=== PATIENT | female | born 1955 | race Caucasian/White ===

== ENCOUNTER 2019-02-17 21:56 | Inpatient (IN) | payer OTHER ==
[2019-02-17 22:00] VITALS: BMI 75.1
[2019-02-17] MEDS ORDERED: Nystatin Powder 15 GM BOT TOP PRN (23:35)
[2019-02-18 05:37] LABS: #Basophils 0.1 thou/uL (0.0-0.2); #Eosinphils 0.5 thou/uL (0.0-0.7); #Lymphocytes 1.7 thou/uL (1.20-3.40); #Monocytes 0.5 thou/uL (0.11-0.59); #Neutrophils 1.7 thou/uL (1.40-6.50); %Basophils 1.6 % (0.0-1.0); %Eosinophils 10.1 % (0.0-10.0); %Lymphocytes 38.3 % (21.0-51.0); %Monocytes 11.9 % (0.0-10.0); %Neutrophils 38.1 % (42.0-75.0); Anisocytosis SLIGHT = 6-15 cells (100X) (0-5/hpf); Hemoglobin 10.5 g/dL (12.0-16.0); Hypochromia SLIGHT = 6-15 cells (100X) (0-5/hpf); MDiff Complete? YES; Mean Corpuscular HGB CONC 29.2 g/dL (32.0-36.0); Mean Platelet Volume 9.8 fL (7.4-10.4); Platelet Count 145 thou/uL (130-400); Platelet Morphology Comment Appears Adequate; RBC Distribution Width 18.8 % (11.5-14.5); Red Blood Cell (RBC) Count 3.76 mill/uL (4.20-5.40); White Blood Cell (WBC) Count 4.5 thou/uL (4.8-10.8)
[2019-02-18 05:46] LABS: ALT (SGPT) 19 U/L (8-55); AST (SGOT) 30 U/L (5-34); Albumin 3.1 g/dL (3.4-4.8); Alkaline Phosphatase 53 U/L (40-150); Anion Gap 9 mmol/L (10-20); BUN (Urea Nitrogen) 12 mg/dL (9.8-20.1); Bilirubin, Total 0.7 mg/dL (0.2-1.2); Calc. Creatinine Clearance 290 mL/min (70-130); Calcium 9.7 mg/dL (7.8-10.44); Carbon Dioxide 35 mmol/L (23-31); Chloride 99 mmol/L (98-107); Estimated GFR-MDRD 89; Glucose 96 mg/dL (80-115); Potassium 4.2 mmol/L (3.5-5.1); Protein, Total 6.1 g/dL (6.0-8.3); Sodium 139 mmol/L (136-145)
[2019-02-18] MEDS: Apixaban 5 MG TAB PO SCH ×2 (08:45→20:39)
[2019-02-18] MEDS: Carvedilol 6.25 MG TAB PO SCH ×2 (08:45→20:38)
[2019-02-18] MEDS: Aspirin Chewable 81 MG TAB PO SCH (08:45)
[2019-02-18] MEDS: Bupropion 150 MG XL TAB PO SCH (08:45)
[2019-02-18] MEDS: Ergocalciferol 1.25 MG(50,000 UNITS) CAP PO SCH (08:46)
[2019-02-18] MEDS: Furosemide 40 MG TAB PO SCH ×2 (08:47→13:19)
[2019-02-18] MEDS: Famotidine 20 MG TAB PO SCH ×2 (08:47→20:39)
[2019-02-18] MEDS: Lisinopril 5 MG TAB PO SCH ×2 (08:48→20:37)
[2019-02-18] MEDS: Polyethylene Glycol 3350 17 GM Packet PO SCH (08:49)
[2019-02-18] MEDS: Mupirocin 2% Ointment 22 GM Tube TOP SCH ×2 (08:49→20:27)
[2019-02-18] MEDS: Saccharomyces boulardii 250 MG CAP PO SCH (08:50)
--- NOTE | 2019-02-18 20:55 | HP ---
CHIEF COMPLAINT: Morbidly obese female, admitted for significant deconditioning. BRIEF HISTORY: This is a pleasant 63-year-old, morbidly obese, female, who presented to [facility] on 01/24 with increasing shortness of breath, requiring BiPAP treatment. She was actually at [facility]. She was also felt to have left lower lobe pneumonia and was started on IV vancomycin, IV Zosyn, and Lasix 20 mg IV. She was admitted to the ICU and then transferred to the medical floor after improvement. She was felt to be a candidate for inpatient rehabilitation and transferred here. The patient has a wound VAC to her left leg where she had an abscess which was drained. Currently, she denies any fever, chills, chest pain, or shortness of breath. Wound VAC is going to be placed today by Therapy. PAST MEDICAL HISTORY: 1. Chronic atrial fibrillation. 2. Hypertension. 3. Obstructive sleep apnea. 4. Morbid obesity. 5. Significant deconditioning. 6. Resolving left thigh abscess. 7. Depression. PAST SURGICAL HISTORY: Nothing significant. FAMILY HISTORY: Positive for hypertension and diabetes. PSYCHOSOCIAL HISTORY: Denies any tobacco, alcohol, or recreational drug use. She is nonambulatory due to profound obesity. ALLERGIES: NO KNOWN DRUG ALLERGIES. MEDICATIONS: She has been transferred here on the following medications: 1. DuoNeb 3 mL q.i.d. schedule. 2. Eliquis 5 mg b.i.d. 3. Aspirin 81 mg daily. 4. Wellbutrin XL 300 mg daily. 5. Carvedilol 12.5 mg b.i.d. 6. Diltiazem CD 240 mg daily. 7. Drisdol 1.25 mg p.o. every Sunday. 8. Pepcid 20 mg b.i.d. 9. Lasix 40 mg b.i.d. 10. Lisinopril 5 mg b.i.d. 11. Bactroban ointment b.i.d. 12. MiraLAX 17 g in 8 ounces of water daily. 13. Florastor 250 mg daily. 14. Tylenol 650 p.o. q.4 p.r.n. REVIEW OF SYSTEMS: CARDIOVASCULAR SYSTEM: The patient denies any chest pain, shortness of breath, palpitations, PND, orthopnea, or pedal edema. RESPIRATORY SYSTEM: Denies any chronic cough, expectoration, or pleuritic type chest pain. GASTROINTESTINAL SYSTEM: Denies any nausea, vomiting, diarrhea, constipation, hematemesis, melena, or hematochezia. GENITOURINARY SYSTEM: Denies any frequency, urgency, dysuria, or hematuria. CENTRAL NERVOUS SYSTEM: Generalized weakness. She is awake and responsive. Cranial nerves 2 through 12 grossly intact. PHYSICAL EXAMINATION/OBJECTIVE: GENERAL: A very pleasant 63-year-old morbidly obese female, in no apparent distress. She responds appropriate to questions. She is alert, awake, and oriented x3. No family at bedside. VITAL SIGNS: She is afebrile, heart rate 84, respirations 20, oxygen saturation 97% on 2.5 L of nasal cannula, and blood pressure 100/63. HEENT: Normocephalic, atraumatic. Pupils equal and reactive to light and accommodation. Extraocular muscles intact. No JVD, thyromegaly, cervical lymphadenopathy, or throat exudates. No carotid bruits. CARDIOVASCULAR SYSTEM: S1, S2 plus. Irregularly irregular. RESPIRATORY SYSTEM: Normal vesicular breath sounds heard in all lung jimenez with decreased air entry in the bases. ABDOMEN: Soft, obese, and nontender. Bowel sounds heard in all quadrants. EXTREMITIES: Without cyanosis or clubbing. Chronic venous insufficiency and stasis dermatitis. Dressing over her left lateral lower thigh wound, wound with packing. Surrounding erythema, but no warmth or tenderness. CENTRAL NERVOUS SYSTEM: Alert, awake, and oriented x3. Cranial nerves 2 through 12 intact. Motor system examination shows generalized weakness. LABORATORY VALUES: Show white count of 4.5, H and H are 10.5 and 36.1, and platelet count is 145. Chemistry shows sodium 139, potassium 4.2, BUN and creatinine are 12 and 0.67. IMPRESSION: 1. Resolving left lateral thigh abscess, now requiring wound VAC. 2. Morbid obesity. 3. Hypertension. 4. Chronic atrial fibrillation. 5. Depression and anxiety. 6. Acute hypoxemic respiratory failure, requiring oxygen. 7. Acute on chronic diastolic heart failure. PLAN: 1. Continue discharge medications. 2. Heart healthy diet. 3. CPAP while sleeping. 4. Wound VAC. 5. Monitor heart rate and rhythm. 6. Monitor blood pressure and adjust medications as needed. 7. Titrate oxygen. 8. Breathing treatments as needed. 9. Routine laboratory values. 10. PT and OT eval and treat. 11. Stress ulcer prophylaxis. 12. Decubitus precautions. 13. DVT prophylaxis - she is on Eliquis. 14. Discussed with the patient and nursing in detail and all questions answered. No family at bedside. Job ID: [id number]
[2019-02-19] MEDS: Mupirocin 2% Ointment 22 GM Tube TOP SCH ×2 (09:19→20:28)
[2019-02-19] MEDS: Furosemide 40 MG TAB PO SCH ×2 (09:20→13:42)
[2019-02-19] MEDS: Bupropion 150 MG XL TAB PO SCH (09:20)
[2019-02-19] MEDS: Lisinopril 5 MG TAB PO SCH ×2 (09:20→20:28)
[2019-02-19] MEDS: Apixaban 5 MG TAB PO SCH ×2 (09:21→20:27)
[2019-02-19] MEDS: Famotidine 20 MG TAB PO SCH ×2 (09:21→20:28)
[2019-02-19] MEDS: Aspirin Chewable 81 MG TAB PO SCH (09:21)
[2019-02-19] MEDS: Carvedilol 6.25 MG TAB PO SCH ×2 (09:21→20:27)
[2019-02-19] MEDS: Saccharomyces boulardii 250 MG CAP PO SCH (09:22)
[2019-02-19] MEDS: Polyethylene Glycol 3350 17 GM Packet PO SCH (09:22)
[2019-02-20] MEDS: Carvedilol 6.25 MG TAB PO SCH ×2 (09:31→21:13)
[2019-02-20] MEDS: Bupropion 150 MG XL TAB PO SCH (09:31)
[2019-02-20] MEDS: Famotidine 20 MG TAB PO SCH ×2 (09:31→21:12)
[2019-02-20] MEDS: Furosemide 40 MG TAB PO SCH ×2 (09:31→13:16)
[2019-02-20] MEDS: Mupirocin 2% Ointment 22 GM Tube TOP SCH ×2 (09:32→21:12)
[2019-02-20] MEDS: Lisinopril 5 MG TAB PO SCH ×2 (09:32→21:13)
[2019-02-20] MEDS: Aspirin Chewable 81 MG TAB PO SCH (09:32)
[2019-02-20] MEDS: Polyethylene Glycol 3350 17 GM Packet PO SCH (09:32)
[2019-02-20] MEDS: Apixaban 5 MG TAB PO SCH ×2 (09:32→21:13)
[2019-02-20] MEDS: Saccharomyces boulardii 250 MG CAP PO SCH (09:33)
--- NOTE | 2019-02-20 13:50 | PRG ---
DATE OF SERVICE: 02/20/2019 SUBJECTIVE: Ms. Mckeon is doing well. Denies any complaints. Working with therapy. She would like some Tylenol p.r.n. She also wants to be a full code. OBJECTIVE: VITAL SIGNS: She is afebrile. Heart rate is 71, respirations 18, oxygen saturation 91% on room air, and blood pressure 101/59. CARDIOVASCULAR SYSTEM: S1, S2 plus. RESPIRATORY SYSTEM: Normal vesicular breath sounds. ABDOMEN: Soft, obese, nontender. Bowel sounds heard in all quadrants. EXTREMITIES: Without cyanosis or clubbing. Chronic venous insufficiency. She does have a wound VAC connected to her left thigh abscess drainage site. CENTRAL NERVOUS SYSTEM: AAO x3. Cranial nerves 2 through 12 intact. IMPRESSION: 1. Chronic atrial fibrillation. 2. Hypertension. 3. Obstructive sleep apnea. 4. Morbid obesity. 5. Significant deconditioning. 6. Depression. 7. Resolving left thigh abscess. PLAN: 1. Continue current medications. 2. Add Tylenol 500 mg q.6 p.r.n. 3. Full code. 4. DVT and stress ulcer prophylaxis. 5. Decubitus precautions. 6. Heart healthy diet. 7. Wound VAC care. 8. Physical Therapy. 9. Routine laboratory values. Job ID: [id number]
[2019-02-21] MEDS: Carvedilol 6.25 MG TAB PO SCH ×2 (09:26→21:09)
[2019-02-21] MEDS: Bupropion 150 MG XL TAB PO SCH (09:27)
[2019-02-21] MEDS: Furosemide 40 MG TAB PO SCH ×2 (09:28→13:50)
[2019-02-21] MEDS: Apixaban 5 MG TAB PO SCH ×2 (09:29→21:09)
[2019-02-21] MEDS: Famotidine 20 MG TAB PO SCH ×2 (09:29→21:09)
[2019-02-21] MEDS: Aspirin Chewable 81 MG TAB PO SCH (09:29)
[2019-02-21] MEDS: Lisinopril 5 MG TAB PO SCH ×2 (09:30→21:09)
[2019-02-21] MEDS: Saccharomyces boulardii 250 MG CAP PO SCH (09:31)
[2019-02-21] MEDS: Polyethylene Glycol 3350 17 GM Packet PO SCH (09:33)
[2019-02-21] MEDS: Mupirocin 2% Ointment 22 GM Tube TOP SCH ×2 (09:38→21:10)
[2019-02-22] MEDS: Apixaban 5 MG TAB PO SCH ×2 (08:53→21:18)
[2019-02-22] MEDS: Aspirin Chewable 81 MG TAB PO SCH (08:53)
[2019-02-22] MEDS: Bupropion 150 MG XL TAB PO SCH (08:53)
[2019-02-22] MEDS: Carvedilol 6.25 MG TAB PO SCH ×2 (08:54→21:17)
[2019-02-22] MEDS: Famotidine 20 MG TAB PO SCH ×2 (08:55→21:18)
[2019-02-22] MEDS: Lisinopril 5 MG TAB PO SCH ×2 (08:55→21:18)
[2019-02-22] MEDS: Furosemide 40 MG TAB PO SCH ×2 (08:55→13:52)
[2019-02-22] MEDS: Mupirocin 2% Ointment 22 GM Tube TOP SCH ×2 (08:56→21:19)
[2019-02-22] MEDS: Saccharomyces boulardii 250 MG CAP PO SCH (08:56)
[2019-02-22] MEDS: Polyethylene Glycol 3350 17 GM Packet PO SCH (08:56)
--- NOTE | 2019-02-22 09:12 | PRG ---
DATE OF SERVICE: 02/22/2019 SUBJECTIVE: Ms. Mckeon is a very pleasant 63-year-old morbidly obese white female, who presented to the emergency room at [facility] with shortness of breath, requiring BiPAP treatment. She was sent from [facility] and felt to have left lower lobe pneumonia. She was started on IV vancomycin, IV Zosyn, and Lasix 20 mg. She had to be admitted to the intensive care unit. Eventually, she was stabilized, transferred to the medical floor, and now was transferred to [facility] for increased physical therapy and occupational therapy through rehab. She did have an abscess on her left leg, which had to be drained. She now has a wound VAC, which is doing well. The patient states that she is doing well and has no problems. Her wound VAC does not hurt at all. She feels much better. She has already lost quite a bit of weight. Most likely that is from her diuresis. OBJECTIVE: GENERAL: This is a well-developed, well-nourished, obese white female, in no apparent distress at this time. VITAL SIGNS: Today reveal blood pressure 124/66; pulse 67 to 78; respirations 22 down to 20; O2 saturation 96% on 1 L yesterday on room air, this morning reveals O2 saturation 94%. T-max 96.5. HEENT: Normocephalic and nontraumatic cranium. Pupils are equal, round, and reactive. Extraocular movements are intact. Nose and throat are slightly dry. NECK: Supple without masses, nodes, or bruits. CHEST: Clear to auscultation. No rales, rhonchi, wheezes, or cough is heard. HEART: Irregularly irregular rate and rhythm. No murmurs, gallops, or rubs are noted. ABDOMEN: Soft and nontender without organomegaly. Normal bowel sounds are noted. She is morbidly obese. : Deferred. EXTREMITIES: No clubbing, cyanosis, or edema. The patient's left wound VAC is working well. It is not red, it is not leaking. No redness, warmth, or tenderness is noted. NEUROLOGIC: The patient is oriented x3. ASSESSMENT: 1. Left lateral thigh abscess with wound VAC. 2. Chronic atrial fibrillation. 3. Hypertension. 4. Acute hypoxic respiratory failure, requiring oxygen and CPAP every night. 5. [id number] diastolic heart failure. 6. Depression and anxiety. 7. Generalized weakness. PLAN: 1. Continue present medications. 2. Continue to encourage the patient to wear CPAP every night. 3. Continue wound VAC. 4. Monitor the patient's blood pressure and adjust medications as needed. 5. Titrate oxygen as needed. 6. P.r.n. DuoNeb. 7. Continue physical therapy and occupational therapy. 8. Decubitus precautions. 9. Stress ulcer prophylaxis. 10. Continue DVT prophylaxis with Eliquis. Job ID: [id number]
--- NOTE | 2019-02-23 07:50 | PRG ---
DATE OF SERVICE: 02/23/2019 SUBJECTIVE: Ms. Mckeon is a very pleasant 63-year-old morbidly obese white female. She presented to the emergency room at [place] with shortness of breath and required BiPAP. She eventually was stabilized and sent to [facility]. She was started on IV vancomycin, Zosyn, and Lasix. She had to be admitted to intensive care unit and where she was stabilized. She was eventually transferred to [facility] for PT and OT to increase her strength and stamina. The patient has also had a drained abscess on left leg, which now has a wound VAC on it. It was changed yesterday and has very little drainage today. The patient states she had a great day yesterday after they fixed her wound VAC. She has been doing well. She states she is hoping to go home this week or next week. OBJECTIVE: VITAL SIGNS: Reveal blood pressure 110/67, pulse 80, respirations 20, O2 saturation 95% on 1 L nasal cannula. T-max 97.9. GENERAL: This is a well-developed, well-nourished, very pleasant, morbidly obese white female, in no apparent distress at this time. HEENT: Normocephalic and nontraumatic cranium. Pupils are equal, round, and reactive. Extraocular movements are intact. Nose and throat are moist this morning. NECK: Supple without masses, nodes, or bruits. CHEST: Clear to auscultation. No rales, rhonchi, or wheezes are heard. No cough is noted. HEART: Reveals an irregularly irregular rate and rhythm. No murmurs, gallops, or rubs are noted. ABDOMEN: Soft, obese, nontender. Normal bowel sounds are noted. No rebound or guarding is noted. : Deferred. EXTREMITIES: Revealed no clubbing, cyanosis, or edema. The patient's wound VAC in the left lower thigh reveals no significant drainage at this time. It is not red, warm, or tender. It is not leaking. NEUROLOGIC: The patient is oriented x3. IMPRESSION: 1. Generalized weakness. 2. Chronic atrial fibrillation. 3. Hypertension. 4. Acute hypoxic respiratory failure, requiring oxygen, CPAP every night. 5. Left lateral thigh abscess with wound VAC. 6. Acute on chronic diastolic heart failure. 7. Depression and anxiety. 8. Generalized weakness. PLAN: 1. Continue present medications. 2. Encourage the patient to wear her CPAP every night. 3. Monitor the patient's blood pressure, adjust medications as needed. 4. Titrate oxygen as needed. 5. P.r.n. DuoNeb. 6. Continue wound VAC. 7. Decubitus precautions. 8. Stress ulcer precautions. 9. DVT prophylaxis with Eliquis. 10. Continue physical therapy and occupational therapy. Job ID: [id number]
[2019-02-23] MEDS: Carvedilol 6.25 MG TAB PO SCH ×2 (08:58→21:20)
[2019-02-23] MEDS: Furosemide 40 MG TAB PO SCH ×2 (08:59→13:28)
[2019-02-23] MEDS: Famotidine 20 MG TAB PO SCH ×2 (09:01→21:20)
[2019-02-23] MEDS: Bupropion 150 MG XL TAB PO SCH (09:01)
[2019-02-23] MEDS: Lisinopril 5 MG TAB PO SCH ×2 (09:02→21:20)
[2019-02-23] MEDS: Aspirin Chewable 81 MG TAB PO SCH (09:02)
[2019-02-23] MEDS: Apixaban 5 MG TAB PO SCH ×2 (09:02→21:20)
[2019-02-23] MEDS: Polyethylene Glycol 3350 17 GM Packet PO SCH (09:03)
[2019-02-23] MEDS: Saccharomyces boulardii 250 MG CAP PO SCH (09:04)
[2019-02-23] MEDS: Mupirocin 2% Ointment 22 GM Tube TOP SCH ×2 (09:12→21:21)
[2019-02-24] MEDS: Bupropion 150 MG XL TAB PO SCH (08:51)
[2019-02-24] MEDS: Aspirin Chewable 81 MG TAB PO SCH (08:52)
[2019-02-24] MEDS: Carvedilol 6.25 MG TAB PO SCH ×2 (08:52→20:51)
[2019-02-24] MEDS: Lisinopril 5 MG TAB PO SCH ×2 (08:53→20:51)
[2019-02-24] MEDS: Apixaban 5 MG TAB PO SCH ×2 (08:53→20:50)
[2019-02-24] MEDS: Furosemide 40 MG TAB PO SCH ×2 (08:54→13:28)
[2019-02-24] MEDS: Famotidine 20 MG TAB PO SCH ×2 (08:54→20:51)
[2019-02-24] MEDS: Polyethylene Glycol 3350 17 GM Packet PO SCH (09:00)
[2019-02-24] MEDS: Saccharomyces boulardii 250 MG CAP PO SCH (09:01)
[2019-02-24] MEDS: Mupirocin 2% Ointment 22 GM Tube TOP SCH ×2 (09:41→20:52)
--- NOTE | 2019-02-24 13:18 | PRG ---
DATE OF SERVICE: 02/24/2019 SUBJECTIVE: Ms. Mckeon is doing well. She has been working on for lunch. Denies any concerns or questions. Happy with her progress. Her wound VAC is apparently not draining anything, and physical therapy is doing the wound care. No fever, chills, chest pain, or shortness of breath. No family at bedside. OBJECTIVE: VITAL SIGNS: She is afebrile, heart rate 79, respirations 19, oxygen saturation 94% on 1 L, and blood pressure 118/87. CARDIOVASCULAR SYSTEM: S1 and S2 plus. RESPIRATORY SYSTEM: Normal vesicular breath sounds. ABDOMEN: Soft, obese, nontender. Bowel sounds heard in all quadrants. EXTREMITIES: Without cyanosis, clubbing. Wound VAC in place. CENTRAL NERVOUS SYSTEM: AAO x3. Improving weakness. IMPRESSION: 1. Left thigh abscess, status post I and D, now with wound VAC placement. 2. Morbid obesity. 3. Chronic atrial fibrillation. 4. Hypertension. 5. Obstructive sleep apnea. 6. Improving deconditioning. PLAN: 1. Continue current medications. 2. Nutritional support. 3. Wound VAC. 4. DVT and stress ulcer prophylaxis. 5. Decubitus precautions. 6. Monitor heart rate and rhythm. 7. Continue therapy. 8. Discussed with the patient in detail. All questions answered. Job ID: [id number]
[2019-02-25] MEDS: Lisinopril 5 MG TAB PO SCH ×2 (09:10→20:34)
[2019-02-25] MEDS: Furosemide 40 MG TAB PO SCH ×2 (09:10→13:49)
[2019-02-25] MEDS: Apixaban 5 MG TAB PO SCH ×2 (09:10→20:33)
[2019-02-25] MEDS: Famotidine 20 MG TAB PO SCH ×2 (09:10→20:34)
[2019-02-25] MEDS: Aspirin Chewable 81 MG TAB PO SCH (09:10)
[2019-02-25] MEDS: Bupropion 150 MG XL TAB PO SCH (09:10)
[2019-02-25] MEDS: Carvedilol 6.25 MG TAB PO SCH ×2 (09:10→20:34)
[2019-02-25] MEDS: Saccharomyces boulardii 250 MG CAP PO SCH (09:11)
[2019-02-25] MEDS: Mupirocin 2% Ointment 22 GM Tube TOP SCH ×2 (09:12→20:34)
[2019-02-25] MEDS: Polyethylene Glycol 3350 17 GM Packet PO SCH (09:12)
[2019-02-25] MEDS: Ergocalciferol 1.25 MG(50,000 UNITS) CAP PO SCH (09:19)
--- NOTE | 2019-02-25 14:10 | PRG ---
DATE OF SERVICE: SUBJECTIVE: Ms. Mckeon is doing well. She has been moved to a bigger room, so therapy can work with her more comfortably. The patient denies any concerns or questions. She is tolerating her VAC. No fever or chills. OBJECTIVE: VITAL SIGNS: She is afebrile. Heart rate 73, respirations 18, blood pressure 116/57. CARDIOVASCULAR SYSTEM: S1 and S2 plus. RESPIRATORY SYSTEM: Normal vesicular breath sounds. ABDOMEN: Soft, obese, nontender. Bowel sounds heard in all quadrants. EXTREMITIES: Without cyanosis, clubbing. Wound VAC in place to the left thigh abscess drainage site. CENTRAL NERVOUS SYSTEM: AAO x3. Cranial nerves 2 through 12 intact. Improving deconditioning. IMPRESSION: 1. Left thigh abscess status post I and D, now requiring wound VAC. 2. Chronic atrial fibrillation. 3. Hypertension. 4. Obstructive sleep apnea. 5. Morbid obesity. 6. Significant deconditioning. 7. Depression. PLAN: 1. Continue current medications. 2. Nutritional support. 3. DVT and stress ulcer prophylaxis. 4. Decubitus precautions. 5. Wound VAC care. 6. Routine laboratory values. 7. Physical therapy. 8. Discussed with the patient and therapy in detail. All questions answered. Job ID: [id number]
[2019-02-25] MEDS: Acetaminophen 325 MG TAB PO PRN (19:06)
[2019-02-26] MEDS: Apixaban 5 MG TAB PO SCH ×2 (08:27→20:14)
[2019-02-26] MEDS: Aspirin Chewable 81 MG TAB PO SCH (08:27)
[2019-02-26] MEDS: Bupropion 150 MG XL TAB PO SCH (08:28)
[2019-02-26] MEDS: Carvedilol 6.25 MG TAB PO SCH ×2 (08:28→20:14)
[2019-02-26] MEDS: Famotidine 20 MG TAB PO SCH ×2 (08:29→20:14)
[2019-02-26] MEDS: Lisinopril 5 MG TAB PO SCH ×2 (08:29→20:15)
[2019-02-26] MEDS: Furosemide 40 MG TAB PO SCH ×2 (08:29→13:17)
[2019-02-26] MEDS: Polyethylene Glycol 3350 17 GM Packet PO SCH (08:30)
[2019-02-26] MEDS: Saccharomyces boulardii 250 MG CAP PO SCH (08:30)
[2019-02-26] MEDS: Mupirocin 2% Ointment 22 GM Tube TOP SCH ×2 (08:30→20:18)
[2019-02-27] MEDS: Aspirin Chewable 81 MG TAB PO SCH (08:27)
[2019-02-27] MEDS: Apixaban 5 MG TAB PO SCH ×2 (08:27→21:26)
[2019-02-27] MEDS: Bupropion 150 MG XL TAB PO SCH (08:28)
[2019-02-27] MEDS: Carvedilol 6.25 MG TAB PO SCH ×2 (08:28→21:27)
[2019-02-27] MEDS: Famotidine 20 MG TAB PO SCH ×2 (08:29→21:25)
[2019-02-27] MEDS: Lisinopril 5 MG TAB PO SCH ×2 (08:29→21:26)
[2019-02-27] MEDS: Furosemide 40 MG TAB PO SCH ×2 (08:29→14:09)
[2019-02-27] MEDS: Polyethylene Glycol 3350 17 GM Packet PO SCH (08:30)
[2019-02-27] MEDS: Mupirocin 2% Ointment 22 GM Tube TOP SCH ×2 (08:30→21:28)
[2019-02-27] MEDS: Saccharomyces boulardii 250 MG CAP PO SCH (08:30)
[2019-02-27] MEDS: Acetaminophen 325 MG TAB PO PRN (11:28)
--- NOTE | 2019-02-27 13:52 | PRG ---
DATE OF SERVICE: 02/27/2019 SUBJECTIVE: Ms. Mckeon is doing well except for some sinus congestion. She denies any fever, chills, chest pain, or shortness of breath. She is tolerating therapy and her wound VAC. Discussed with nursing. OBJECTIVE: VITAL SIGNS: She is afebrile. Heart rate 73, respirations 18, blood pressure 138/76, and oxygen saturation 94% on 1 L nasal cannula. CARDIOVASCULAR SYSTEM: S1 and S2 plus. RESPIRATORY SYSTEM: Normal vesicular breath sounds. ABDOMEN: Soft, obese, and nontender. Bowel sounds heard in all quadrants. EXTREMITIES: Without cyanosis or clubbing. Wound VAC in place. CENTRAL NERVOUS SYSTEM: AAO x3. Cranial nerves 2 through 12 intact. Improving deconditioning. IMPRESSION: 1. Left thigh abscess, requiring I and D and wound VAC placement. 2. Chronic atrial fibrillation. 3. Hypertension. 4. Obstructive sleep apnea. 5. Morbid obesity. 6. Deconditioning. 7. Depression. 8. Possible allergic rhinitis. PLAN: 1. Trial of Claritin 10 mg daily at bedtime. 2. Continue other medications. 3. Nutritional support. 4. DVT and stress ulcer prophylaxis. 5. Decubitus precautions. 6. Wound VAC care. 7. Monitor heart rate and rhythm. 8. Continue therapy. 9. Routine laboratory values. 10. Discussed with the patient in detail. All questions answered. Job ID: [id number]
[2019-02-27] MEDS: Loratadine 10 MG TAB PO SCH (21:26)
[2019-02-28] MEDS: Bupropion 150 MG XL TAB PO SCH (08:39)
[2019-02-28] MEDS: Aspirin Chewable 81 MG TAB PO SCH (08:39)
[2019-02-28] MEDS: Apixaban 5 MG TAB PO SCH ×2 (08:39→21:21)
[2019-02-28] MEDS: Carvedilol 6.25 MG TAB PO SCH ×2 (08:40→21:22)
[2019-02-28] MEDS: Furosemide 40 MG TAB PO SCH ×2 (08:42→14:25)
[2019-02-28] MEDS: Famotidine 20 MG TAB PO SCH ×2 (08:42→21:20)
[2019-02-28] MEDS: Lisinopril 5 MG TAB PO SCH ×2 (08:42→21:22)
[2019-02-28] MEDS: Mupirocin 2% Ointment 22 GM Tube TOP SCH (08:52)
[2019-02-28] MEDS: Polyethylene Glycol 3350 17 GM Packet PO SCH (08:52)
[2019-02-28] MEDS: Saccharomyces boulardii 250 MG CAP PO SCH (08:53)
--- NOTE | 2019-02-28 12:16 | PRG ---
DATE OF SERVICE: SUBJECTIVE: The patient is sitting up in the bed, feels well. Feels that she is getting stronger, is tolerating wound VAC to her left leg with minimal pain, is having no palpitations or shortness of breath at rest. OBJECTIVE: VITAL SIGNS: Show blood pressure is 114/77, pulse 77, O2 sats 95% on 2L. LUNGS: Show decreased breath sounds at bases. CARDIAC: Shows irregularly irregular rhythm. ABDOMEN: Obese, nontender. ASSESSMENT: 1. Resolving left thigh abscess, on wound VAC and on PT and OT. 2. Chronic atrial fibrillation with adequate rate control, on anticoagulation. 3. Hypertension, controlled to goal. 4. Obstructive sleep apnea and morbid obesity, stable. 5. Allergic rhinitis, persistent, despite initiation of treatment with loratadine. PLAN: 1. Continue physical therapy. 2. Continue wound care. 3. Continue rate control and anticoagulation of atrial fibrillation. 4. Continue physical and occupational therapies. Job ID: [id number]
[2019-02-28] MEDS: Loratadine 10 MG TAB PO SCH (21:21)
--- NOTE | 2019-03-01 07:59 | PRG ---
DATE OF SERVICE: 03/01/2019 SUBJECTIVE: The patient feels well, lying in the bed, but is having some problems with increased chest congestion as well as nasal congestion with some dyspnea, she has not received breathing treatment this morning. She did wear her CPAP last night. OBJECTIVE: LUNGS: With few diffuse wheezes. CARDIAC: Regular rhythm. SKIN/EXTREMITIES: Shows morbid obesity with no edema. VITAL SIGNS: Shows O2 sats 96% on 2 L, blood pressure 120/70. EXTREMITIES: Left thigh shows wound VAC in place. CARDIAC: Shows irregularly irregular rhythm. ASSESSMENT: 1. Obstructive sleep apnea, compliant to CPAP, but with increased wheezing this morning. Awaiting nebulizer treatment. 2. Resolving left thigh abscess with wound VAC in place. 3. Chronic atrial fibrillation with rate controlled on anticoagulation. 4. Hypertension, controlled to goal. PLAN: 1. Obtain chest x-ray. 2. Continue handheld nebulizers, oxygen supplementation, and CPAP as needed. Continue physical and occupational therapy, and obtain chest x-ray. Job ID: [id number]
[2019-03-01] MEDS: Bupropion 150 MG XL TAB PO SCH (09:22)
[2019-03-01] MEDS: Famotidine 20 MG TAB PO SCH ×2 (09:22→20:00)
[2019-03-01] MEDS: Saccharomyces boulardii 250 MG CAP PO SCH (09:22)
[2019-03-01] MEDS: Lisinopril 5 MG TAB PO SCH ×2 (09:22→20:00)
[2019-03-01] MEDS: Furosemide 40 MG TAB PO SCH ×2 (09:22→14:37)
[2019-03-01] MEDS: Aspirin Chewable 81 MG TAB PO SCH (09:22)
[2019-03-01] MEDS: Polyethylene Glycol 3350 17 GM Packet PO SCH (09:23)
[2019-03-01] MEDS: Apixaban 5 MG TAB PO SCH ×2 (09:23→20:01)
[2019-03-01] MEDS: Carvedilol 6.25 MG TAB PO SCH ×2 (09:23→20:00)
[2019-03-01] MEDS: Acetaminophen 325 MG TAB PO PRN (17:04)
[2019-03-01] MEDS: Loratadine 10 MG TAB PO SCH (20:01)
[2019-03-02] MEDS: Bupropion 150 MG XL TAB PO SCH (08:35)
[2019-03-02] MEDS: Apixaban 5 MG TAB PO SCH ×2 (08:36→20:32)
[2019-03-02] MEDS: Carvedilol 6.25 MG TAB PO SCH ×2 (08:36→20:32)
[2019-03-02] MEDS: Saccharomyces boulardii 250 MG CAP PO SCH (08:36)
[2019-03-02] MEDS: Aspirin Chewable 81 MG TAB PO SCH (08:36)
[2019-03-02] MEDS: Lisinopril 5 MG TAB PO SCH ×2 (08:36→20:32)
[2019-03-02] MEDS: Famotidine 20 MG TAB PO SCH ×2 (08:36→20:32)
[2019-03-02] MEDS: Furosemide 40 MG TAB PO SCH ×2 (08:36→14:41)
[2019-03-02] MEDS: Polyethylene Glycol 3350 17 GM Packet PO SCH (08:37)
[2019-03-02] MEDS: Loratadine 10 MG TAB PO SCH (20:32)
--- NOTE | 2019-03-02 21:04 | PRG ---
DATE OF SERVICE: 03/02/2019 SUBJECTIVE: The patient feels well, sitting up in bed family somewhat. She is having no pain in her hip, is having decreasing dyspnea. OBJECTIVE: VITAL SIGNS: O2 sats 94% on 1 L, temperature is 96.5, pulse 65, respirations 20, and blood pressure 122/75. LUNGS: Clear. Cardiac: Showed regular rhythm. ABDOMEN: Soft and nontender. Morbid obesity. EXTREMITIES: Morbid obesity of the legs with left thigh wound VAC in place. ASSESSMENT: 1. Stable obstructive sleep apnea, on CPAP with no further wheezing after nebulizer treatment. 2. Resolving left thigh abscess, on wound VAC. 3. Chronic atrial fibrillation, rate controlled on anticoagulation. 4. Hypertension, controlled to goal. PLAN: 1. Continue wound VAC, wound care. 2. Continue CPAP at night. 3. Continue handheld nebulizers and supplemental oxygen as needed. Discussed x-ray with Department as may be unable to obtain x-ray on this lady. Job ID: [id number]
[2019-03-03] MEDS: Acetaminophen 325 MG TAB PO PRN (04:46)
[2019-03-03] MEDS: Carvedilol 6.25 MG TAB PO SCH ×2 (08:41→20:22)
[2019-03-03] MEDS: Apixaban 5 MG TAB PO SCH ×2 (08:41→20:22)
[2019-03-03] MEDS: Aspirin Chewable 81 MG TAB PO SCH (08:41)
[2019-03-03] MEDS: Saccharomyces boulardii 250 MG CAP PO SCH (08:41)
[2019-03-03] MEDS: Bupropion 150 MG XL TAB PO SCH (08:42)
[2019-03-03] MEDS: Lisinopril 5 MG TAB PO SCH ×2 (08:42→20:22)
[2019-03-03] MEDS: Furosemide 40 MG TAB PO SCH ×2 (08:43→13:48)
[2019-03-03] MEDS: Famotidine 20 MG TAB PO SCH ×2 (08:43→20:22)
[2019-03-03] MEDS: Polyethylene Glycol 3350 17 GM Packet PO SCH (08:45)
--- NOTE | 2019-03-03 13:36 | PRG ---
DATE OF SERVICE: 03/03/2019 SUBJECTIVE: Ms. Mckeon is doing well. She is happy with her progress. She states she is getting stronger. Denies any concerns or questions. OBJECTIVE: VITAL SIGNS: She is afebrile. Heart rate 75, respirations 18, oxygen saturation 97%. She currently has her oxygen off. CARDIOVASCULAR: S1 and S2 plus. RESPIRATORY: Normal vesicular breath sounds. ABDOMEN: Soft, obese, nontender. Bowel sounds heard in all quadrants. EXTREMITIES: Without cyanosis or clubbing. Wound VAC in place. CENTRAL NERVOUS SYSTEM: AAO x3. Cranial nerves 2 through 12 intact. Improving deconditioning. IMPRESSION: 1. Left thigh abscess status post incision and drainage now with wound VAC. Apparently, it is closing well. We will discuss with therapy as to see if and when it can be discontinued. 2. Morbid obesity. 3. Chronic atrial fibrillation. 4. Hypertension. 5. Obstructive sleep apnea. 6. Deconditioning. 7. Depression. 8. Allergic rhinitis. PLAN: 1. Continue Claritin. 2. Wound VAC. 3. Nutritional support. 4. DVT and stress ulcer prophylaxis. 5. Decubitus precaution. 6. Routine laboratory values. 7. Continue physical therapy. 8. Discussed with the patient in detail. All questions answered. Job ID: [id number]
[2019-03-03] MEDS: Loratadine 10 MG TAB PO SCH (20:22)
[2019-03-04] MEDS: Bupropion 150 MG XL TAB PO SCH (09:19)
[2019-03-04] MEDS: Lisinopril 5 MG TAB PO SCH ×2 (09:20→19:41)
[2019-03-04] MEDS: Carvedilol 6.25 MG TAB PO SCH ×2 (09:20→19:41)
[2019-03-04] MEDS: Ergocalciferol 1.25 MG(50,000 UNITS) CAP PO SCH (09:20)
[2019-03-04] MEDS: Furosemide 40 MG TAB PO SCH ×2 (09:20→13:01)
[2019-03-04] MEDS: Saccharomyces boulardii 250 MG CAP PO SCH (09:21)
[2019-03-04] MEDS: Polyethylene Glycol 3350 17 GM Packet PO SCH (09:21)
[2019-03-04] MEDS: Famotidine 20 MG TAB PO SCH ×2 (09:21→19:42)
[2019-03-04] MEDS: Aspirin Chewable 81 MG TAB PO SCH (09:21)
[2019-03-04] MEDS: Apixaban 5 MG TAB PO SCH ×2 (09:21→19:41)
--- NOTE | 2019-03-04 13:27 | PRG ---
DATE OF SERVICE: 03/04/2019 SUBJECTIVE: Ms. Mckeon is doing well. Denies any complaints. Resting comfortably up in her chair and just finished her lunch. She is working on fpc papers. Her insurance apparently has approved her to stay here until March 13. I reviewed her old records and Dr. Augustine does not mention anything about needing to see her as outpatient. Her wounds are healing nicely. I spoke with therapy and apparently it is about 15 mm x 15 mm. I advised him to continue wound VAC until he thinks she does not need it and after that they can just do regular dressings. I do not think suturing that is going to help, it really needs to heal completely by secondary intention. OBJECTIVE: VITAL SIGNS: She is afebrile, heart rate 77, respirations 20, oxygen saturation 95% on room air, blood pressure 124/83. CARDIOVASCULAR: S1, S2 plus. RESPIRATORY: Normal vesicular breath sounds. ABDOMEN: Soft, obese, nontender. Bowel sounds heard in all quadrants. EXTREMITIES: Without cyanosis or clubbing. Peripheral pulses are palpable. CENTRAL NERVOUS SYSTEM: AAO x3. Cranial nerves 2 through 12 intact. Grossly nonfocal. IMPRESSION: 1. Left thigh abscess status post incision and drainage and now with wound VAC. 2. Morbid obesity. 3. Obstructive sleep apnea. 4. Deconditioning, slow improvement. 5. Chronic atrial fibrillation. 6. Hypertension. 7. Depression. 8. Allergic rhinitis. PLAN: 1. Continue current medications. 2. Wound VAC. 3. Nutritional support. 4. DVT and stress ulcer prophylaxis. 5. Decubitus precaution. 6. Routine laboratory values. 7. Physical therapy. 8. Discussed with the patient in detail. All questions are answered. Job ID: [id number]
[2019-03-04] MEDS: Loratadine 10 MG TAB PO SCH (19:41)
[2019-03-05] MEDS: Saccharomyces boulardii 250 MG CAP PO SCH (08:23)
[2019-03-05] MEDS: Apixaban 5 MG TAB PO SCH ×2 (08:24→19:48)
[2019-03-05] MEDS: Famotidine 20 MG TAB PO SCH ×2 (08:24→19:48)
[2019-03-05] MEDS: Bupropion 150 MG XL TAB PO SCH (08:24)
[2019-03-05] MEDS: Furosemide 40 MG TAB PO SCH ×2 (08:24→14:31)
[2019-03-05] MEDS: Aspirin Chewable 81 MG TAB PO SCH (08:24)
[2019-03-05] MEDS: Carvedilol 6.25 MG TAB PO SCH ×2 (08:24→19:48)
[2019-03-05] MEDS: Lisinopril 5 MG TAB PO SCH ×2 (08:24→19:48)
[2019-03-05] MEDS: Polyethylene Glycol 3350 17 GM Packet PO SCH (08:25)
[2019-03-05] MEDS: Loratadine 10 MG TAB PO SCH (19:49)
[2019-03-06] MEDS: Carvedilol 6.25 MG TAB PO SCH ×2 (08:51→21:04)
[2019-03-06] MEDS: Furosemide 40 MG TAB PO SCH ×2 (08:52→14:16)
[2019-03-06] MEDS: Polyethylene Glycol 3350 17 GM Packet PO SCH (08:52)
[2019-03-06] MEDS: Famotidine 20 MG TAB PO SCH ×2 (08:52→21:03)
[2019-03-06] MEDS: Aspirin Chewable 81 MG TAB PO SCH (08:52)
[2019-03-06] MEDS: Bupropion 150 MG XL TAB PO SCH (08:52)
[2019-03-06] MEDS: Lisinopril 5 MG TAB PO SCH ×2 (08:52→21:03)
[2019-03-06] MEDS: Apixaban 5 MG TAB PO SCH ×2 (08:52→21:03)
[2019-03-06] MEDS: Saccharomyces boulardii 250 MG CAP PO SCH (08:52)
--- NOTE | 2019-03-06 10:13 | PRG ---
DATE OF SERVICE: 03/06/2019 SUBJECTIVE: Ms. Mckeon is doing well, denies any complaints, slowly improving with therapy. Apparently, her last date per insurance is 03/13. Discussed with nursing and I advised them to try to titrate her off the oxygen. She apparently does not use it at home. She is currently in a 1 L. OBJECTIVE: VITAL SIGNS: She is afebrile. Heart rate 81, respirations 20, oxygen saturation 94% on 1 L, blood pressure 128/70. CARDIOVASCULAR SYSTEM: S1, S2 plus. RESPIRATORY SYSTEM: Normal vesicular breath sounds, occasional rhonchi. ABDOMEN: Soft, obese, nontender. Bowel sounds heard in all quadrants. EXTREMITIES: Without cyanosis, clubbing. Thigh with wound VAC. CENTRAL NERVOUS SYSTEM: AAO x3. Cranial nerves 2 through 12 intact. Improving deconditioning. IMPRESSION: 1. Left thigh abscess, requiring I and D and wound VAC placement. 2. Obstructive sleep apnea, on nocturnal CPAP. 3. Morbid obesity. 4. Acute hypoxemic respiratory failure, slowly titrating her oxygen. 5. Chronic atrial fibrillation. 6. Hypertension. 7. Depression. 8. Allergic rhinitis. PLAN: 1. Continue current medications. 2. Continue wound VAC. 3. Nutritional support. 4. DVT and stress ulcer prophylaxis. 5. Decubitus precautions. Monitor heart rate and rhythm. 6. Titrate oxygen. 7. Continue therapy. 8. Discussed with the patient and nursing in detail. All questions answered. Job ID: [id number]
[2019-03-06] MEDS: Loratadine 10 MG TAB PO SCH (21:03)
[2019-03-07] MEDS: Bupropion 150 MG XL TAB PO SCH (08:46)
[2019-03-07] MEDS: Saccharomyces boulardii 250 MG CAP PO SCH (08:46)
[2019-03-07] MEDS: Famotidine 20 MG TAB PO SCH ×2 (08:48→21:02)
[2019-03-07] MEDS: Lisinopril 5 MG TAB PO SCH ×3 (08:48→21:02)
[2019-03-07] MEDS: Furosemide 40 MG TAB PO SCH ×2 (08:48→13:53)
[2019-03-07] MEDS: Aspirin Chewable 81 MG TAB PO SCH (08:48)
[2019-03-07] MEDS: Carvedilol 6.25 MG TAB PO SCH ×3 (08:48→21:02)
[2019-03-07] MEDS: Apixaban 5 MG TAB PO SCH ×2 (08:49→21:02)
[2019-03-07] MEDS: Polyethylene Glycol 3350 17 GM Packet PO SCH (08:52)
[2019-03-07] MEDS: Acetaminophen 325 MG TAB PO PRN (14:25)
[2019-03-07] MEDS: Loratadine 10 MG TAB PO SCH (21:02)
--- NOTE | 2019-03-08 09:04 | PRG ---
DATE OF SERVICE: 03/08/2019 SUBJECTIVE: The patient feels well, sitting up in the bed. Has had her oxygen removed. She is working on her puzzles and states she has no complaints of wound VAC is in place and functioning, but she states PT feels they may be able discontinue it early this week, if she is being discharged later in the week. OBJECTIVE: Shows blood pressure is 118/56, temperature is 97.8, pulse 82, respirations 16, O2 sats 94% on room air. Lungs are clear. Cardiac examination showed regular rhythm. Abdomen shows morbid obesity as do extremities. Wound VAC is in place on the left thigh abscess. LABORATORY DATA: No recent laboratories done. PLAN: 1. Continue wound VAC. 2. Continue to stress ambulation. 3. Continue CPAP at night. 4. Continue to monitor oxygen saturation off supplemental oxygen. 5. Hypertension, controlled to goal. Job ID: [id number]
[2019-03-08] MEDS: Lisinopril 5 MG TAB PO SCH ×2 (09:17→21:24)
[2019-03-08] MEDS: Saccharomyces boulardii 250 MG CAP PO SCH (09:18)
[2019-03-08] MEDS: Furosemide 40 MG TAB PO SCH ×2 (09:18→13:36)
[2019-03-08] MEDS: Carvedilol 6.25 MG TAB PO SCH ×2 (09:18→21:24)
[2019-03-08] MEDS: Aspirin Chewable 81 MG TAB PO SCH (09:19)
[2019-03-08] MEDS: Apixaban 5 MG TAB PO SCH ×2 (09:19→21:24)
[2019-03-08] MEDS: Famotidine 20 MG TAB PO SCH ×2 (09:19→21:23)
[2019-03-08] MEDS: Polyethylene Glycol 3350 17 GM Packet PO SCH (09:22)
[2019-03-08] MEDS: Bupropion 150 MG XL TAB PO SCH (09:22)
[2019-03-08] MEDS: Loratadine 10 MG TAB PO SCH (21:24)
[2019-03-09] MEDS: Bupropion 150 MG XL TAB PO SCH (08:51)
[2019-03-09] MEDS: Furosemide 40 MG TAB PO SCH ×2 (08:52→12:52)
[2019-03-09] MEDS: Saccharomyces boulardii 250 MG CAP PO SCH (08:52)
[2019-03-09] MEDS: Famotidine 20 MG TAB PO SCH ×2 (08:52→21:23)
[2019-03-09] MEDS: Apixaban 5 MG TAB PO SCH ×2 (08:52→21:23)
[2019-03-09] MEDS: Aspirin Chewable 81 MG TAB PO SCH (08:52)
[2019-03-09] MEDS: Lisinopril 5 MG TAB PO SCH ×2 (08:53→21:23)
[2019-03-09] MEDS: Carvedilol 6.25 MG TAB PO SCH ×2 (08:54→21:22)
--- NOTE | 2019-03-09 09:18 | PRG ---
DATE OF SERVICE: 03/09/2019 SUBJECTIVE: The patient is sitting up in chair, feels well. No complaints. Rested well last night. Having no pain in her legs. No shortness of breath or chest pain. OBJECTIVE: VITAL SIGNS: Show blood pressure is 135/65, O2 saturations 94% on room air, pulse 79, respirations 18. LUNGS: Clear. CARDIAC: Showed regular rhythm. ABDOMEN: Obese and nontender. EXTREMITIES: Wound VAC is in place in the left leg with minimal to no drainage. ASSESSMENT: 1. Resolving abscess, left leg. 2. Stable obstructive sleep apnea, on CPAP. 3. Stable morbid obesity. 4. Hypertension, controlled to goal. PLAN: 1. Continue to monitor oxygen saturation off supplemental oxygen. 2. Continue wound VAC with discussion about discharge home with [place] [facility]. 3. Continue to stress transfer to wheelchair and ambulation in story. 4. Continue CPAP at night. 5. Dr. Brock will be back tonight at 9:00 p.m. Job ID: [id number]
[2019-03-09] MEDS: Polyethylene Glycol 3350 17 GM Packet PO SCH (09:29)
[2019-03-09] MEDS: Loratadine 10 MG TAB PO SCH (21:23)
[2019-03-10] MEDS: Saccharomyces boulardii 250 MG CAP PO SCH (09:05)
[2019-03-10] MEDS: Bupropion 150 MG XL TAB PO SCH (09:05)
[2019-03-10] MEDS: Carvedilol 6.25 MG TAB PO SCH ×2 (09:05→21:00)
[2019-03-10] MEDS: Aspirin Chewable 81 MG TAB PO SCH (09:05)
[2019-03-10] MEDS: Furosemide 40 MG TAB PO SCH ×2 (09:06→13:37)
[2019-03-10] MEDS: Lisinopril 5 MG TAB PO SCH ×2 (09:06→21:00)
[2019-03-10] MEDS: Famotidine 20 MG TAB PO SCH ×2 (09:06→21:00)
[2019-03-10] MEDS: Apixaban 5 MG TAB PO SCH ×2 (09:06→21:00)
[2019-03-10] MEDS: Polyethylene Glycol 3350 17 GM Packet PO SCH (09:10)
[2019-03-10] MEDS: Loratadine 10 MG TAB PO SCH (21:00)
[2019-03-11] MEDS: Bupropion 150 MG XL TAB PO SCH (09:25)
[2019-03-11] MEDS: Acetaminophen 325 MG TAB PO PRN (09:26)
[2019-03-11] MEDS: Furosemide 40 MG TAB PO SCH ×2 (09:26→14:19)
[2019-03-11] MEDS: Famotidine 20 MG TAB PO SCH ×2 (09:26→21:15)
[2019-03-11] MEDS: Lisinopril 5 MG TAB PO SCH ×2 (09:26→21:15)
[2019-03-11] MEDS: Saccharomyces boulardii 250 MG CAP PO SCH (09:26)
[2019-03-11] MEDS: Carvedilol 6.25 MG TAB PO SCH ×2 (09:26→21:14)
[2019-03-11] MEDS: Aspirin Chewable 81 MG TAB PO SCH (09:26)
[2019-03-11] MEDS: Apixaban 5 MG TAB PO SCH ×2 (09:27→21:14)
[2019-03-11] MEDS: Ergocalciferol 1.25 MG(50,000 UNITS) CAP PO SCH (09:32)
[2019-03-11] MEDS: Polyethylene Glycol 3350 17 GM Packet PO SCH (09:33)
--- NOTE | 2019-03-11 13:45 | PRG ---
DATE OF SERVICE: 03/11/2019 SUBJECTIVE: Ms. Mckeon is doing well. She is seen on her way to her case conference. She is planning on going home on Sunday. Plan is for her to have home health for a couple of weeks until she settles in and have therapy kind of show her how to do her ADLs within the confines of her home and then possibly start outpatient therapy. Her wound is much improved and her wound VAC is going to be discontinued tomorrow. Her friend is with her and no concerns or questions. She wants to continue to see me until these all resolve and then she will follow up with her regular physician in [place]. OBJECTIVE: VITAL SIGNS: She is afebrile, heart rate 78, respirations 20, oxygen saturation 94% on room air, and blood pressure 140/67. CARDIOVASCULAR SYSTEM: S1 and S2 plus. RESPIRATORY SYSTEM: Normal vesicular breath sounds. ABDOMEN: Soft, obese, and nontender. Bowel sounds in all quadrants. EXTREMITIES: Without cyanosis or clubbing. Peripheral pulses are palpable. Chronic venous insufficiency. CENTRAL NERVOUS SYSTEM: AAO x3. Cranial nerves 2 through 12 intact. Improving deconditioning. IMPRESSION: 1. Left thigh abscess, status post incision and drainage and placement of wound VAC with significant improvement. 2. Obstructive sleep apnea. 3. Resolved acute hypoxemic respiratory failure. 4. Chronic atrial fibrillation. 5. Hypertension. 6. Depression. 7. Allergic rhinitis. 8. Morbid obesity. PLAN: 1. Continue to monitor her oxygen levels. 2. Continue current medications. 3. Discontinue wound VAC tomorrow as the wound has healed and does not need any further negative pressure treatment. 4. Continue therapy. 5. Discharge planning. 6. Discussed with the patient and friend in detail. All questions were answered. Job ID: [id number]
[2019-03-11] MEDS: Loratadine 10 MG TAB PO SCH (21:15)
[2019-03-12 05:07] LABS: #Basophils 0.1 thou/uL (0.0-0.2); #Eosinphils 0.5 thou/uL (0.0-0.7); #Lymphocytes 1.8 thou/uL (1.20-3.40); #Monocytes 0.7 thou/uL (0.11-0.59); #Neutrophils 2.6 thou/uL (1.40-6.50); %Basophils 1.1 % (0.0-1.0); %Eosinophils 8.8 % (0.0-10.0); %Monocytes 12.1 % (0.0-10.0); Hemoglobin 11.1 g/dL (12.0-16.0); Mean Corpuscular HGB CONC 31.4 g/dL (32.0-36.0); Mean Corpuscular Hemoglobin 29.6 pg (27.0-31.0); Mean Corpuscular Volume 94.2 fL (78.0-98.0); Mean Platelet Volume 9.9 fL (7.4-10.4); Platelet Count 165 thou/uL (130-400); RBC Distribution Width 17.3 % (11.5-14.5); Red Blood Cell (RBC) Count 3.77 mill/uL (4.20-5.40); White Blood Cell (WBC) Count 5.6 thou/uL (4.8-10.8)
[2019-03-12 05:13] LABS: MDiff Complete? YES; Manual Diff?? NO
[2019-03-12 05:25] LABS: Anion Gap 15 mmol/L (10-20); BUN (Urea Nitrogen) 32 mg/dL (9.8-20.1); Calc. Creatinine Clearance 121 mL/min (70-130); Calcium 9.7 mg/dL (7.8-10.44); Carbon Dioxide 31 mmol/L (23-31); Chloride 98 mmol/L (98-107); Estimated GFR-MDRD 33; Glucose 98 mg/dL (80-115); Potassium 4.1 mmol/L (3.5-5.1); Sodium 140 mmol/L (136-145)
[2019-03-12] MEDS: Apixaban 5 MG TAB PO SCH ×2 (08:59→20:18)
[2019-03-12] MEDS: Aspirin Chewable 81 MG TAB PO SCH (09:00)
[2019-03-12] MEDS: Bupropion 150 MG XL TAB PO SCH (09:00)
[2019-03-12] MEDS: Carvedilol 6.25 MG TAB PO SCH ×2 (09:00→20:18)
[2019-03-12] MEDS: Famotidine 20 MG TAB PO SCH ×2 (09:01→20:19)
[2019-03-12] MEDS: Furosemide 40 MG TAB PO SCH ×2 (09:01→14:15)
[2019-03-12] MEDS: Lisinopril 5 MG TAB PO SCH ×2 (09:01→20:21)
[2019-03-12] MEDS: Polyethylene Glycol 3350 17 GM Packet PO SCH (09:02)
[2019-03-12] MEDS: Saccharomyces boulardii 250 MG CAP PO SCH (09:02)
[2019-03-12] MEDS: Loratadine 10 MG TAB PO SCH (20:22)
[2019-03-13] MEDS: Bupropion 150 MG XL TAB PO SCH (08:28)
[2019-03-13] MEDS: Aspirin Chewable 81 MG TAB PO SCH (08:28)
[2019-03-13] MEDS: Carvedilol 6.25 MG TAB PO SCH ×2 (08:28→20:29)
[2019-03-13] MEDS: Furosemide 40 MG TAB PO SCH ×2 (08:29→13:38)
[2019-03-13] MEDS: Famotidine 20 MG TAB PO SCH ×2 (08:29→20:29)
[2019-03-13] MEDS: Saccharomyces boulardii 250 MG CAP PO SCH (08:30)
[2019-03-13] MEDS: Lisinopril 5 MG TAB PO SCH ×2 (08:30→20:29)
[2019-03-13] MEDS: Polyethylene Glycol 3350 17 GM Packet PO SCH (08:30)
[2019-03-13] MEDS: Apixaban 5 MG TAB PO SCH ×2 (08:31→20:30)
--- NOTE | 2019-03-13 14:25 | PRG ---
DATE OF SERVICE: SUBJECTIVE: Ms. Mckeon is doing well. Denies any complaints. Wound VAC has been removed having some work done at home in preparation for her going home. Her anticipated discharge date is tomorrow or Sunday morning. She only needs refills on 3 medications which I have sent in to [facility] on [facility] in [place]. She wants to follow up with me for the next month or so until her current issues are completely resolved before she resumes her care with her PCP. Arrangements for home health are being made. OBJECTIVE: VITAL SIGNS: She is afebrile. Heart rate is 78, respirations 18, oxygen saturation 94% on room air, and blood pressure 122/67. CARDIOVASCULAR SYSTEM: S1, S2 plus. RESPIRATORY SYSTEM: Normal vesicular breath sounds. ABDOMEN: Soft, nontender. Bowel sounds in all quadrants. Obese. EXTREMITIES: Without cyanosis, clubbing. Left thigh incision with dressing pretty much healed up. CENTRAL NERVOUS SYSTEM: AAO x3. Cranial nerves 2 through 12 intact. Grossly nonfocal. IMPRESSION: 1. Left thigh abscess, status post incision and drainage, much improved. 2. Morbid obesity. 3. Obstructive sleep apnea. 4. Resolved acute hypoxemic respiratory failure. 5. Chronic atrial fibrillation. 6. Hypertension. 7. Depression. 8. Allergic rhinitis. PLAN: 1. Continue current medications. 2. Discharge planning including arranging home health. She has no preference. I have sent in a referral for home health and they are going to contact her. 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 3. Activity as tolerated. 4. Bariatric diet. 5. Continue wound care. 6. Call me with any questions or concerns. 7. Outpatient followup in my office in 2 weeks. 8. Discussed with the patient in detail and all questions answered. Job ID: [id number]
[2019-03-13] MEDS: Loratadine 10 MG TAB PO SCH (20:30)
[2019-03-14 07:33] VITALS: BP 122/60
[2019-03-14] MEDS: Aspirin Chewable 81 MG TAB PO SCH (09:34)
[2019-03-14] MEDS: Apixaban 5 MG TAB PO SCH (09:34)
[2019-03-14] MEDS: Bupropion 150 MG XL TAB PO SCH ×2 (09:34→09:35)
[2019-03-14] MEDS: Carvedilol 6.25 MG TAB PO SCH (09:35)
[2019-03-14] MEDS: Famotidine 20 MG TAB PO SCH (09:36)
[2019-03-14] MEDS: Furosemide 40 MG TAB PO SCH ×3 (09:37→13:49)
[2019-03-14] MEDS: Lisinopril 5 MG TAB PO SCH (09:38)
[2019-03-14] MEDS: Saccharomyces boulardii 250 MG CAP PO SCH (09:38)
[2019-03-14] MEDS: Polyethylene Glycol 3350 17 GM Packet PO SCH (09:41)
[2019-03-14 10:39] VITALS: TEMP 97.5
--- NOTE | 2019-03-15 05:15 | DIS ---
DATE OF ADMISSION: 02/17/2019 DATE OF DISCHARGE: 03/14/2019 PRINCIPAL DIAGNOSES: 1. Recent left lower lobe pneumonia. 2. Left thigh abscess, requiring incision and drainage and wound VAC placement with significant deconditioning for therapy. 3. Chronic atrial fibrillation. 4. Hypertension. 5. Obstructive sleep apnea. 6. Morbid obesity. 7. Depression. 8. Allergic rhinitis. COMPLICATIONS: None. ADVERSE REACTIONS: None. PROCEDURES: None. CONSULTATIONS: PT and OT as well as wound care. HOSPITAL COURSE: The patient was admitted as a transfer from [facility] where she was admitted with shortness of breath, respiratory failure and was diagnosed with left lower lobe pneumonia and a left thigh abscess, requiring I and D and wound VAC placement. She had improved enough that she was switched over to oral antibiotics, but felt that she needed therapy and so was transferred here. She was continued on wound VAC treatment. She completed her antibiotic regimen. She was monitored closely from the respiratory and cardiovascular standpoint. She has improved significantly and her insurance deemed her to have reached maximum medical improvement based upon therapy notes and clinical notes and did not extend her stay, so she is being discharged today. Arrangements are being tried to be made for home health. Unfortunately, most home health providers are not participating with her insurance, which is [employer]. I have sent in her medications that she needs refills to her pharmacy, which is [facility] on [facility]. She wants to follow up with me in a couple of weeks to make sure everything resolves before she goes back to her PCP. The patient was advised to call me with any questions or concerns on the day of discharge. PHYSICAL EXAMINATION: VITAL SIGNS: She is afebrile. Heart rate is 77, respirations 22, oxygen saturation 91% on room air, blood pressure 122/60. CARDIOVASCULAR SYSTEM: S1-S2 plus. RESPIRATORY SYSTEM: Normal vesicular breath sounds with decreased air entry at the bases. ABDOMEN: Soft, obese, nontender. Bowel sounds in all quadrants. EXTREMITIES: Without cyanosis, clubbing. Left thigh incision area with dressing. CENTRAL NERVOUS SYSTEM: AAO x3. Cranial nerves 2 through 12 intact. Improved deconditioning. DISCHARGE MEDICATIONS: 1. Tylenol 650 q.6h p.r.n. 2. Eliquis 5 mg b.i.d. 3. Aspirin 81 mg daily. 4. Wellbutrin XL 300 mg daily. 5. Carvedilol 12.5 mg b.i.d. 6. Cardizem CD 240 mg daily. 7. Vitamin D, [place] 82208 units q. week. 8. Lasix 40 mg b.i.d. 9. Zestril 5 mg b.i.d. 10. Claritin 10 mg at bedtime. 11. Pepcid OTC 20 mg daily. Of note, she came to us on oxygen and she has been titrated off her oxygen. DISCHARGE INSTRUCTIONS: 1. Diet: Will be heart healthy, bariatric diet. 2. Activity: As tolerated. 3. Followup: Outpatient followup in my office in 2 weeks. 4. Monitor left thigh wound area for any recurrence of redness, pain, swelling, or drainage. Also monitor for any fever or chills. 5. The patient was advised to call me with any questions or concerns. She has my office contact number, which also connects her to the answering service. 6. No family at bedside. Discussed with nursing. TIME SPENT: Total time spent on this discharge 35 minutes. Job ID: [id number]
== END 2019-03-14 14:15 | disposition home health service (06) | DRG 602 ==
LOC: NAV ACUTE 21:56
PROVIDERS: ADMIT Internal Medicine; ATTEND Internal Medicine
DX: L02.416 Cutaneous abscess of left lower limb (principal); I50.33 Acute on chronic diastolic (congestive) heart failure; J96.01 Acute respiratory failure with hypoxia; Z68.45 Body mass index [BMI] 70 or greater, adult; E66.01 Morbid (severe) obesity due to excess calories; I48.2 Chronic atrial fibrillation; F41.9 Anxiety disorder, unspecified; F32.9 Major depressive disorder, single episode, unspecified; G47.33 Obstructive sleep apnea (adult) (pediatric); R53.81 Other malaise; J30.9 Allergic rhinitis, unspecified; I11.0 Hypertensive heart disease with heart failure; Z79.82 Long term (current) use of aspirin; Z79.899 Other long term (current) drug therapy
CPT/HCPCS: 36415; 80048; 80053; 85025; 87070; 87077; 87081; 87186; 87205; 94640; 97602; J7620